=== PATIENT | female | born 1950 | race Caucasian/White ===

== ENCOUNTER → 2024-08-21 13:45 | Outpatient (BNVA) | payer MEDICARE, BC, SELFPAY | PROVIDERS: PCP Family Medicine; Visit Provider Podiatrist Foot & Ankle Surgery | DX: M92.61 Juvenile osteochondrosis of tarsus, right ankle (principal); M92.62 Juvenile osteochondrosis of tarsus, left ankle; M76.61 Achilles tendinitis, right leg | CPT/HCPCS: 99203 ==

== ENCOUNTER → 2024-08-21 13:56 | Outpatient (BNVA) | payer BC, SELFPAY | PROVIDERS: PCP Family Medicine; Visit Provider Podiatrist Foot & Ankle Surgery | DX: M79.671 Pain in right foot (principal); M79.672 Pain in left foot; M92.61 Juvenile osteochondrosis of tarsus, right ankle; M92.62 Juvenile osteochondrosis of tarsus, left ankle; M76.61 Achilles tendinitis, right leg | CPT/HCPCS: 73630 ==

== ENCOUNTER → 2024-09-18 15:00 | Outpatient (BNVA) | payer MEDICARE, BC, SELFPAY | PROVIDERS: PCP Family Medicine; Visit Provider Podiatrist Foot & Ankle Surgery | DX: M92.61 Juvenile osteochondrosis of tarsus, right ankle (principal); M76.61 Achilles tendinitis, right leg; M79.671 Pain in right foot; M79.672 Pain in left foot; M92.62 Juvenile osteochondrosis of tarsus, left ankle | CPT/HCPCS: 99213 ==